=== PATIENT | male | born 1965 | race Caucasian/White ===

== ENCOUNTER 2022-12-10 11:22 | Outpatient (CLI) | payer MEDICAID, SELFPAY | END 2022-12-10 11:23 | disposition home or self-care (01) | PROVIDERS: PCP Family Medicine; Visit Provider Family Medicine | DX: S81.801A Unspecified open wound, right lower leg, initial encounter (principal); W57.XXXA Bitten or stung by nonvenomous insect and other nonvenomous arthropods, initial encounter | CPT/HCPCS: 80053; 85025; 86140; 86617 ==

== ENCOUNTER 2023-11-15 14:00 | Emergency (ER) | payer MEDICAID, SELFPAY ==
[2023-11-15] VITALS (12 sets, daily range): BP systolic 134–155; BP diastolic 93–111; PULSE 94–118; RESP 20; TEMP 37.1; O2SAT 95–99; BMI 24.2
--- NOTE | 2023-11-15 14:53 | CT_ITS ---
Patient: WILLIAM JENKINS Facility:?[facility] Patient ID:?[id number] Site Patient ID:?[id number] Site :?[id number] Study:?CT-ST Neck W/ 74CC [id number]/20/2024 4:07:08 PM Ordering Physician:Loren Valerio Final Report: INDICATION: Smoker, lump in throat, difficulty swallowing, chest/abdominal pain, vomiting TECHNIQUE: CT of the neck with 74 ml Isovue 370 contrast agent. Coronal and sagittal reconstructions are included. COMPARISON: Same day CT chest FINDINGS: The oral cavity, pharyngeal mucosal spaces, and laryngeal structures are unremarkable. The airway is grossly patent. No focal neck mass, abnormal fluid collection, or suspicious cervical lymphadenopathy. There is a left lens implant, with scleral buckle and intra-ocular silicone oil. The right globe and included intracranial structures are unremarkable for technique. The paranasal sinuses and mastoid air cells are clear. The parotid glands, submandibular glands, and thyroid gland have a normal appearance. The major cervical vascular demonstrates expected contrast opacification. No suspicious lytic or blastic osseous lesions identified. Chronic healed fracture deformities of the right posterolateral 4th and 5th ribs. Spinal canal appears grossly patent. No focal mass or consolidation in the included lung apices. IMPRESSION: 1. No focal neck mass, suspicious enhancing lesion, or pathologic cervical lymphadenopathy. 2. Grossly patent visualized airway. 3. Chronic healed right posterior rib fractures. Please note that all CT scans at this facility use dose modulation, iterative reconstruction, and/or weight-based dosing when appropriate to reduce radiation dose to as low as reasonably achievable. Dictated by María Elena Sparrow MD @ 11/15/2023 4:30:12 PM Signed by:?María Elena Sparrow MD @11/15/2023 4:30:12 PM (Electronic Signature)
--- NOTE | 2023-11-15 14:53 | CT_ITS ---
Patient: WILLIAM JENKINS Facility:?[facility] Patient ID:?[id number] Site Patient ID:?[id number]. Site :?[id number] Study:?CT-Chest/Abd/Pelvis W/ 74CC [id number]/20/2024 4:07:35 PM Ordering Physician:Loren Valerio Final Report: Indication: Smoker, lump in throat, difficulty swallowing, chest/abd pain, vomiting Technique: CT of the chest, abdomen, and pelvis was obtained with 74 mL of Isovue 370 intravenous contrast. Please note that all CT scans at this facility use dose modulation, iterative reconstruction, and/or weight-based dosing when appropriate to reduce radiation dose to as low as reasonably achievable. Comparison: None. Findings: CHEST: Medical devices: None. Thyroid: Normal. Lymph nodes: No supraclavicular, axillary, mediastinal, or hilar lymphadenopathy. Vasculature: Aorta and main pulmonary artery diameters are within normal range. Heart: Mild coronary artery calcification. No pericardial effusion. Other mediastinal structures: Mildly thick-walled esophagus. Lung parenchyma and pleura: Mild patchy ground-glass opacity in the left lower lobe (4/64). Airways: No significant abnormality. Chest wall: Moderate chronic appearing right posterior rib deformities. ABDOMEN/PELVIS: Liver and biliary tree: Normal. Gallbladder: Normal. Spleen: Normal. Pancreas: Normal. Adrenal glands: Normal. Kidneys and ureters: Mild left renal cortical scarring. Ill-defined area of hypoenhancement in the inferior left kidney (7/63). No hydronephrosis. No obstructing renal calculi. Gastrointestinal tract: Normal appendix. No evidence of bowel obstruction. Small hiatal hernia. Peritoneal cavity: Normal. Bladder: Mild to moderate wall thickening. Pelvic organs: Mildly enlarged prostate. Vasculature: Mild calcification. Lymph nodes: Normal. Abdominal wall: Normal. Musculoskeletal: Normal. Impression: 1. Mildly thick-walled esophagus may represent esophagitis. Small hiatal hernia. 2. Mild patchy ground-glass opacity in the left lower lobe may represent atypical infection or inflammation. 3. Ill-defined area of hypoenhancement in the inferior left kidney may represent pyelonephritis. Mild to moderate urinary bladder wall thickening. Consider correlation with urinalysis. Outpatient ultrasound may be considered to rule out subtle underlying left renal lesion. Please note that all CT scans at this facility use dose modulation, iterative reconstruction, and/or weight-based dosing when appropriate to reduce radiation dose to as low as reasonably achievable. Dictated by Jonatan Leahy MD @ 11/15/2023 4:34:12 PM Signed by:?Jonatan Leahy MD @11/15/2023 4:34:12 PM (Electronic Signature)
--- NOTE | 2023-11-15 15:10 | ED.GENADULT ---
HPI - General Adult General Date Seen: 11/15/23 Chief complaint: Sore Throat Stated complaint: big lump in throat-weakness, vomiting, blue chest Time Seen by Provider: 11/15/23 14:46 Source: patient and RN notes reviewed Mode of arrival: ambulatory Limitations: no limitations History of Present Illness HPI narrative: Patient is a 58-year-old man with underlying alcohol and substance abuse history who presents noting for the past several days he has had pain in his right nares, sore throat, lump in his throat, multiple episodes of vomiting, abdominal pain. He says it all started when he felt like his nose hairs were growing very long and straight out of his nose, he indicates that he pulled nose hairs out that were many inches in length and now he is concerned that he has a hair ball in the back of his throat. He says he is having difficulty swallowing, he was able to get some soup down yesterday but says he vomited a couple of hours later. He has pain when he swallows. He has not had a fever. He has not had difficulty breathing. He notes epigastric pain associated with vomiting, denies black or bloody stools. Does say that he had some small streaks of blood in his emesis once yesterday. He says he bought a 12 pack of beer few days ago and still has 10 left, notes that he has not been able to drink because of his symptoms. He does smoke cigarettes, did not answer when I asked about other substance use currently. Related Data Previous Rx's Medication Instructions Recorded escitalopram oxalate 10 mg tablet 10 mg PO QDAY #30 tabs 08/06/23 (Lexapro) lisdexamfetamine 60 mg capsule 60 mg PO QDAY #30 caps 09/02/23 lisdexamfetamine 60 mg capsule 60 mg PO QAM #30 caps 09/02/23 (Vyvanse) lisdexamfetamine 60 mg capsule 60 mg PO QAM #30 caps 09/02/23 (Vyvanse) omeprazole 40 mg capsule,delayed 40 mg PO DAILY #30 caps 11/15/23 release sucralfate 100 mg/mL oral 5 ml PO QID PRN #414 mL 11/15/23 suspension (Carafate) Allergies Allergy/AdvReac Type Severity Reaction Status Date / Time No Known Drug Allergies Allergy Verified 11/15/23 14:14 Review of Systems Status of ROS: Reports: 10 or more systems reviewed and unremarkable except as noted in History and below [facility] Medical History ADWOA (generalized anxiety disorder) ?F41.1 - Generalized anxiety disorder (ICD-10) Glaucoma ?H40.9 - Unspecified glaucoma (ICD-10) Bilateral knee pain ?M25.561 - Pain in right knee (ICD-10) ?M25.562 - Pain in left knee (ICD-10) Polysubstance abuse ?F19.10 - Other psychoactive substance abuse, uncomplicated (ICD-10) History of atrial fibrillation (2011) ?Z86.79 - Personal history of other diseases of the circulatory system (ICD-10) Septal infarction ?I21.29 - ST elevation (STEMI) myocardial infarction involving other sites (ICD-10) Alcohol abuse ?F10.10 - Alcohol abuse, uncomplicated (ICD-10) History of rib fracture ?Z87.81 - Personal history of (healed) traumatic fracture (ICD-10) Left corneal scar with opacity ?H17.9 - Unspecified corneal scar and opacity (ICD-10) ADHD (attention deficit hyperactivity disorder), combined type ?F90.2 - Attention-deficit hyperactivity disorder, combined type (ICD-10) Surgical History Dermal nevus of eyebrow (08/17/14) ?D23.39 - Other benign neoplasm of skin of other parts of face (ICD-10) History of reduction of nasal fracture (1995) ?Z98.890 - Other specified postprocedural states (ICD-10) ?Z87.81 - Personal history of (healed) traumatic fracture (ICD-10) History of open reduction and internal fixation (ORIF) procedure (1985) ?Z98.890 - Other specified postprocedural states (ICD-10) Ganglion cyst of finger of right hand (05/2006) ?M67.441 - Ganglion, right hand (ICD-10) History of tonsillectomy and adenoidectomy ?Z90.89 - Acquired absence of other organs (ICD-10) History of bilateral inguinal hernia repair (10/2006) ?Z98.890 - Other specified postprocedural states (ICD-10) ?Z87.19 - Personal history of other diseases of the digestive system (ICD-10) History of eye surgery (2011) ?Z98.890 - Other specified postprocedural states (ICD-10) Family History Brother Myotonia congenita, dominant form (Latonia's disease) Social History Narrative: Single, 2 kids, smoker, THC use, EtOH to excess, unemployed, 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, lives with mom at times otherwise homeless What is your current living situation?: I have a place to live at present, but am concerned about future Problems where you live: no known problems In the past 12 months, utilities in danger of being shut off: no In past 12 months, lack of transportation kept you from medical appts, meetings, work, or getting things needed for daily living: yes In the past 12 mos, have been you worried that your food would run out before you had money to buy more?: never true In the past 12 mos, the food you bought just didn't last and you didn't have money to buy more?: never true Smoking Status: Current some day smoker What tobacco products do you use: cigarettes How often do you have a drink containing alcohol: 2-3 times a week How many standard drinks containing alcohol do you have on a typical day: 1 or 2 AUDIT-C Alcohol total score: 3 Non-prescribed substance use: marijuana (any form) and amphetamines/methamphetamines How often does anyone, including family, friends and others, physically hurt you: never How often does anyone, including family, friends and others, insult or talk down to you: fairly often How often does anyone, including family, friends and others, threaten you with harm: never How often does anyone, including family, friends and others, scream or curse at you: sometimes Little interest or pleasure in doing things: not at all Feeling down, depressed, or hopeless: not at all Exam Narrative: Exam Narrative: Vital signs as noted above. In general, an alert, well-appearing patient. Head: Normocephalic, atraumatic. Eyes: Pupils are equal reactive. Extraocular movements are full. Conjunctivae are normal. ENT: Mucous membranes are moist. Nares clear. Throat is normal, no masses, exudate, airway patent. Neck: Supple without lymphadenopathy. No masses, no stridor. Heart: Regular rate and rhythm. No murmur or rub. Lungs: Clear bilaterally. No increased work of breathing, crackles or wheezes. Abdomen: Soft and nontender. No organomegaly. Extremities: Well perfused. No edema. No calf tenderness. Pulses intact. Neurologic: Patient is alert and oriented to person and place. Speech is fluent. Face is symmetric. Moves all extremities equally. Affect: Normal. Skin: Warm and dry. Well perfused. Const: Vital Signs, click to edit/add: Vital Signs - 24 hr 11/15/23 14:07 11/15/23 15:16 11/15/23 15:30 Temperature 98.7 F Pulse Rate 104 H 102 H Pulse Rate [Pulse Oximeter] 114 H Respiratory Rate 20 Blood Pressure Blood Pressure [Ri ght Upper Arm] 134/93 H Pulse Oximetry 98 95 99 Oxygen Delivery Me thod Room Air 11/15/23 15:31 11/15/23 15:45 11/15/23 16:16 Temperature Pulse Rate 108 H 99 104 H Pulse Rate [Pulse Oximeter] Respiratory Rate Blood Pressure 135/110 H Blood Pressure [Ri ght Upper Arm] Pulse Oximetry 99 96 95 Oxygen Delivery Me thod 11/15/23 16:17 11/15/23 16:30 11/15/23 16:31 Temperature Pulse Rate 108 H 97 94 Pulse Rate [Pulse Oximeter] Respiratory Rate Blood Pressure 145/111 H 155/107 H Blood Pressure [Ri ght Upper Arm] Pulse Oximetry 99 97 98 Oxygen Delivery Me thod 11/15/23 16:32 11/15/23 16:45 11/15/23 17:01 Temperature Pulse Rate 97 118 H Pulse Rate [Pulse Oximeter] Respiratory Rate Blood Pressure 148/98 H Blood Pressure [Ri ght Upper Arm] Pulse Oximetry 98 99 Oxygen Delivery Me thod Documenting provider has reviewed patient's vital signs: yes Course Course ED Course: An IV was placed here, he was given a L normal saline as well as Zofran. His labs are notable for a white count of 17.7, hemoglobin of 15.4, neutrophil percentage of 80%. Unclear whether there is a component of de margination here. He remained afebrile. Sodium was 134, potassium 3.3, chloride 95. CO2 was 25, BUN 26 creatinine 1.1. LFTs notable for an AST of 38, bilirubin normal. Lipase was normal at 56. CRP minimally elevated at 1.3. UA showed 2-5 red cells and 5-10 white blood cells. I did CT scans of the soft tissues of the neck as well as the chest abdomen and pelvis. These are read as following by Radiology:FINDINGS: The oral cavity, pharyngeal mucosal spaces, and laryngeal structures are unremarkable. The airway is grossly patent. No focal neck mass, abnormal fluid collection, or suspicious cervical lymphadenopathy. There is a left lens implant, with scleral buckle and intra-ocular silicone oil. The right globe and included intracranial structures are unremarkable for technique. The paranasal sinuses and mastoid air cells are clear. The parotid glands, submandibular glands, and thyroid gland have a normal appearance. The major cervical vascular demonstrates expected contrast opacification. No suspicious lytic or blastic osseous lesions identified. Chronic healed fracture deformities of the right posterolateral 4th and 5th ribs. Spinal canal appears grossly patent. No focal mass or consolidation in the included lung apices. IMPRESSION: 1. No focal neck mass, suspicious enhancing lesion, or pathologic cervical lymphadenopathy. 2. Grossly patent visualized airway. 3. Chronic healed right posterior rib fractures. Findings: CHEST: Medical devices: None. Thyroid: Normal. Lymph nodes: No supraclavicular, axillary, mediastinal, or hilar lymphadenopathy. Vasculature: Aorta and main pulmonary artery diameters are within normal range. Heart: Mild coronary artery calcification. No pericardial effusion. Other mediastinal structures: Mildly thick-walled esophagus. Lung parenchyma and pleura: Mild patchy ground-glass opacity in the left lower lobe (4/64). Airways: No significant abnormality. Chest wall: Moderate chronic appearing right posterior rib deformities. ABDOMEN/PELVIS: Liver and biliary tree: Normal. Gallbladder: Normal. Spleen: Normal. Pancreas: Normal. Adrenal glands: Normal. Kidneys and ureters: Mild left renal cortical scarring. Ill-defined area of hypoenhancement in the inferior left kidney (7/63). No hydronephrosis. No obstructing renal calculi. Gastrointestinal tract: Normal appendix. No evidence of bowel obstruction. Small hiatal hernia. Peritoneal cavity: Normal. Bladder: Mild to moderate wall thickening. Pelvic organs: Mildly enlarged prostate. Vasculature: Mild calcification. Lymph nodes: Normal. Abdominal wall: Normal. Musculoskeletal: Normal. Impression: 1. Mildly thick-walled esophagus may represent esophagitis. Small hiatal hernia. 2. Mild patchy ground-glass opacity in the left lower lobe may represent atypical infection or inflammation. 3. Ill-defined area of hypoenhancement in the inferior left kidney may represent pyelonephritis. Mild to moderate urinary bladder wall thickening. Consider correlation with urinalysis. Outpatient ultrasound may be considered to rule out subtle underlying left renal lesion. I reviewed this with him. Reviewed that there is no evidence of an apparent mass, malignancy, stricture, or other abnormality of the throat. He does have evidence of esophagitis, which I suspect is significantly contributing to his symptoms. I gave him Protonix here, and will start him on omeprazole and Carafate at home. Discussed that he needs to abstain from alcohol which he says he will have no trouble doing since he is going to go to treatment. I asked him when he plans to go to treatment he said really any time he feels ready. He does not plan to go to inpatient treatment however, he says he has done that 6 times and they can teach him anything new. We discussed his urine drug screen which is positive for meth. He says he hangs out with people who do meth and maybe they were putting it in his drinks. He denies specifically using methamphetamine. Given that there was a question of pyelonephritis on CT knee does have some white cells in his urine I am going to cover him with an antibiotic, but in the absence of significant flank pain, fever, I am not certain of this diagnosis. He did remain tachycardic, but he was pretty agitated at the time of his most recent vital signs. He settled down during conversation with me. He seems to feel somewhat better knowing that there is not a mass in his throat. For now, I think it is reasonable to let him go home, I have prescribed Zofran, Carafate, omeprazole, and Macrobid. He should follow-up with Dr. Armstrong in the next week for recheck. Return to the ER at any time for fevers, chills, persistent vomiting, significant flank pain or other worsening. Vital Signs Vital signs: Initial Vital Signs Temperature 98.7 F 11/15/23 14:07 Temperature Source Temporal Artery Scan 11/15/23 14:07 Pulse Rate 114 H 11/15/23 14:07 Respiratory Rate 20 11/15/23 14:07 Blood Pressure 134/93 H 11/15/23 14:07 Blood Pressure Mean 106 H 11/15/23 14:07 Blood Pressure Position Sitting 11/15/23 14:07 Pulse Oximetry 98 11/15/23 14:07 Oxygen Delivery Method Room Air 11/15/23 14:07 Vital Signs Temperature 98.7 F 11/15/23 14:07 Pulse Rate 114 H 11/15/23 14:07 Respiratory Rate 20 11/15/23 14:07 Blood Pressure 134/93 H 11/15/23 14:07 Pulse Oximetry 98 11/15/23 14:07 Oxygen Delivery Method Room Air 11/15/23 14:07 Temperature 98.7 F 11/15/23 14:07 Pulse Rate 118 H 11/15/23 16:45 Respiratory Rate 11/15/23 14:07 Blood Pressure 148/98 H 11/15/23 17:01 Pulse Oximetry 99 11/15/23 16:45 Oxygen Delivery Method Room Air 11/15/23 14:07 Medications Administered Medications: Discontinued Medications Generic Name Dose Route Start Last Admin Trade Name Freq PRN Reason Stop Dose Admin Sodium Chloride 1,000 mls @ 1,000 mls/hr 11/15/23 15:00 11/15/23 16:40 0.9 % Sodium Chloride 1000 Ml IV 11/15/23 15:59 Infused .Q1H TORSTEN Infusion Lidocaine/Aluminum/Magnesium/Simeth 30 ml 11/15/23 17:05 11/15/23 17:09 Gi Cocktail (Visc Lido/Antacid) 30 Ml PO 11/15/23 17:06 30 ml ONCE ONE Administration Ondansetron HCl 4 mg 11/15/23 14:53 11/15/23 15:15 Ondansetron 2 Mg/Ml Inj IVP 11/15/23 14:54 4 mg ONCE ONE Administration Pantoprazole Sodium 40 mg 11/15/23 16:58 11/15/23 17:11 Pantoprazole Sodium 40 Mg Inj IVP 11/15/23 16:59 40 mg ONCE ONE Administration Medical Decision Making Lab Data Labs: Lab Results 11/15/23 11/15/23 Range/Units 15:15 15:23 WBC 17.70 H (4.50-11.00) K/uL RBC 5.16 (4.30-5.90) m/uL Hgb 15.4 (13.5-17.5) gm/dL Hct 44.4 (37.0-53.0) % MCV 86 (80-100) fL MCH 30 (26-34) pg MCHC 35 (32-36) gm/dL RDW Coeff of Tee 13.2 (11.5-15.5) % Plt Count 382 (140-440) K/uL Neut % (Auto) 79.7 H (42.0-72.0) % Lymph % (Auto) 10.0 L (20-44) % [place] % (Auto) 9.8 (0.0-11.0) % Eos % (Auto) 0.1 (0.0-7.0) % Baso % (Auto) 0.1 (0.0-3.0) % Neut # (Auto) 14.10 H (1.7-7.0) K/uL Lymph # (Auto) 1.80 (0.90-2.90) K/uL [place] # (Auto) 1.70 H (0.00-0.90) K/UL Eos # (Auto) 0.00 (0.00-0.50) K/uL Baso # (Auto) 0.00 (0.00-0.30) K/uL Abs Immat Gran (auto) 0.10 (0.00-0.30) K/uL Imm/Tot Granulo (auto) 0.3 % Sodium 134 L (135-149) mmol/L Potassium 3.3 L (3.6-5.1) mmol/L Chloride 95 L (96-114) mmol/L Carbon Dioxide 25 (20-32) mmol/L Anion Gap 14 (7-15) mEq/L BUN 26 (7-30) mg/dL Creatinine 1.1 (0.5-1.5) mg/dL Estimated Creat Clear 67.67 Estimated GFR 79 ml/min Glucose 111 (60-115) mg/dL Calcium 10.9 H (8.4-10.6) mg/dL Total Bilirubin 1.1 (0.1-1.5) mg/dL Direct Bilirubin 0.3 (0.0-0.5) mg/dL AST 38 H (12-35) U/L ALT 34 (4-50) U/L Alkaline Phosphatase 107 (40-150) U/L C-Reactive Protein 1.3 H (0.5-1.0) mg/dL Total Protein 9.3 H (6.0-8.3) g/dL Albumin 5.7 H (3.3-5.0) g/dL Lipase 56 (23-300) U/L Urine Color Yellow (Yellow) Urine Appearance Cloudy A (Clear) Urine pH 6.0 (5.0-8.5) Ur Specific [place] 1.025 (1.000-1.030) Urine Protein 2+ A (Negative) Urine Glucose (UA) Negative (Negative) Urine Ketones 3+ A (Negative) Urine Blood Trace-intact A (Negative) Urine Nitrite Negative (Negative) Urine Bilirubin Negative (Negative) Urine Urobilinogen 0.2 (0.2-1.0) Ur Leukocyte Esterase Negative (Negative) Urine RBC 2-5 A (0-2) Urine WBC 5-10 A (0-5) Ur Squamous Epith Cells None (None-Few) Amorphous Sediment Few A (None) Other Sediment Moderate A (None) Urine Bacteria Few A (None) Hyaline Casts Moderate A (None-Few) Fine Granular Casts Moderate A (None) Urine Mucus Many A (None) Urine Opiates Screen Negative (Negative) Ur Oxycodone Screen Negative (Negative) Urine Methadone Screen Negative (Negative) Ur Barbiturates Screen Negative (Negative) U Tricyclic Antidepress Negative (Negative) Ur Phencyclidine Scrn Negative (Negative) Ur Amphetamines Screen POSITIVE A (Negative) U Methamphetamines Scrn POSITIVE A (Negative) U Benzodiazepines Scrn Negative (Negative) Urine Cocaine Screen Negative (Negative) U Marijuana (THC) Screen POSITIVE A (Negative) Ur Drug Screen Comment See Note Ethyl Alcohol < 0.01 L (0.01-0.03) % Discharge Plan Discharge Clinical Impression: Polysubstance abuse, Esophagitis Patient Disposition: Home, Self-Care Condition: Improved Instructions: Esophagitis (ED) Additional Instructions: Your CT scans do not show any evidence of mass or blockage in your throat. You may have a little bit of a urinary tract infection, and it looks like you have esophagitis, inflammation of the esophagus. I would recommend abstinence from alcohol as this will tend to make this worse. I have prescribed a medication to help treat the inflammation that is presently there. I have also prescribed an antibiotic in case of urinary tract infection. I have also prescribe Zofran which you can use for nausea or vomiting. Please follow-up with primary care for recheck in the next week. Return to the ER at any time if you develop new symptoms such as fever, chills, flank pain, persistent vomiting or other worsening. Prescriptions: New sucralfate [Carafate] 100 mg/mL suspension 5 ml PO QID PRNQty: 414 2RF Rx Instructions: swish in mouth and swallow; use after food/drink omeprazole 40 mg capsule,delayed release(DR/EC) 40 mg PO DAILY Qty: 30 2RF No Action escitalopram oxalate [Lexapro] 10 mg tablet 10 mg PO QDAY Qty: 30 1RF Rx Instructions: 1/2 QD x 6 days then 1 QD lisdexamfetamine [Vyvanse] 60 mg capsule 60 mg PO QAM Qty: 30 0RF lisdexamfetamine 60 mg capsule 60 mg PO QDAY Qty: 30 0RF lisdexamfetamine [Vyvanse] 60 mg capsule 60 mg PO QAM Qty: 30 0RF Follow Up/Referrals: Fernando Armstrong MD [Primary Care Provider] - Stand Alone Forms: [facility] Info Instructions
[2023-11-15] MEDS: ONDANSETRON 2 MG/ML inj 4 MG IVP (15:15)
[2023-11-15 15:25] LABS: Basophils Percent Auto 0.1 % (0.0-3.0); Eosinophils Percent Auto 0.1 % (0.0-7.0); Hematocrit 44.4 % (37.0-53.0); Hemoglobin* 15.4 gm/dL (13.5-17.5); Immature Granulocytes Pct Auto 0.3 %; Mean Corpuscular HGB Conc 35 gm/dL (32-36); Mean Corpuscular Hemoglobin 30 pg (26-34); Mean Corpuscular Volume 86 fL (80-100); Monocytes Percent Auto 9.8 % (0.0-11.0); Neutrophils Percent Auto 79.7 % (42.0-72.0); Platelet Count* 382 K/uL (140-440); RDW Coefficient of Variation % 13.2 % (11.5-15.5); Red Blood Count 5.16 m/uL (4.30-5.90)
[2023-11-15] MEDS: 0.9 % SODIUM CHLORIDE 1000 ml 1,000 ML IV (15:25)
[2023-11-15 15:30] LABS: Appearance Urine Cloudy (Clear); Bilirubin Urine Negative (Negative); Blood Urine Trace-intact (Negative); Color Urine Yellow (Yellow); Glucose Urine Negative (Negative); Ketones Urine 3+ (Negative); Leukocyte Esterase Urine Negative (Negative); Nitrite Urine Negative (Negative); Protein Urine 2+ (Negative); Specific Gravity Urine 1.025 (1.000-1.030); Urobilinogen Urine 0.2 (0.2-1.0)
[2023-11-15 15:31] LABS: Slide Review Reflex No
[2023-11-15 15:36] LABS: Albumin* 5.7 g/dL (3.3-5.0)
[2023-11-15 15:37] LABS: Chloride* 95 mmol/L (96-114); Potassium* 3.3 mmol/L (3.6-5.1); Sodium* 134 mmol/L (135-149)
[2023-11-15 15:39] LABS: Alanine Aminotransferase* 34 U/L (4-50); Alkaline Phosphatase* 107 U/L (40-150); Aspartate Amino Transferase* 38 U/L (12-35); Bilirubin Direct* 0.3 mg/dL (0.0-0.5); Bilirubin Total* 1.1 mg/dL (0.1-1.5); Total Protein* 9.3 g/dL (6.0-8.3)
[2023-11-15 15:40] LABS: Creatinine* 1.1 mg/dL (0.5-1.5); Est. Creatinine Clearance* 67.67; Estimated Glomerular Filt Rate 79 ml/min; Lipase* 56 U/L (23-300)
[2023-11-15 15:41] LABS: Amphetamine Screen Urine POSITIVE (Negative); Barbiturate Screen Urine Negative (Negative); Benzodiazepines Screen Urine Negative (Negative); Cannabinoid Screen Urine POSITIVE (Negative); Cocaine Screen Urine Negative (Negative); Methadone Screen Urine Negative (Negative); Methamphetamines Screen Urine POSITIVE (Negative); Opiate Screen Urine Negative (Negative); Oxycodone Screen Urine Negative (Negative); Phencyclidine Screen Urine Negative (Negative); Tricyclic Antidepressant Urine Negative (Negative)
[2023-11-15 15:41] LABS: Anion Gap 14 mEq/L (7-15); Blood Urea Nitrogen* 26 mg/dL (7-30); Calcium* 10.9 mg/dL (8.4-10.6); Carbon Dioxide* 25 mmol/L (20-32); Ethanol* < 0.01 % (0.01-0.03); Glucose* 111 mg/dL (60-115)
[2023-11-15 15:43] LABS: Amorphous Sediment Urine Few; Bacteria Urine Few; Mucus Urine Many; Other Sediment Urine Moderate
[2023-11-15 15:44] LABS: C Reactive Protein* 1.3 mg/dL (0.5-1.0)
[2023-11-15 15:44] LABS: Fine Granular Casts Urine Moderate; Hyaline Casts Urine Moderate (None-Few)
--- NOTE | 2023-11-15 16:44 | ED.NURSE ---
Pt vomited 75ml of emesis
[2023-11-15] MEDS: GI COCKTAIL (VISC LIDO/ANTACID) 30 ML PO (17:09)
[2023-11-15] MEDS: PANTOPRAZOLE SODIUM 40 MG INJ IVP (17:11)
== END 2023-11-15 17:25 | disposition home or self-care (01) ==
PROVIDERS: Emergency Provider Emergency Medicine; PCP Family Medicine
DX: K20.90 Esophagitis, unspecified without bleeding (principal); F19.10 Other psychoactive substance abuse, uncomplicated
CPT/HCPCS: 36415; 70491; 71260; 74177; 80048; 80076; 80306; 81001; 82077; 83690; 85025; 86140; 87086; 96374; 96375; 99284; A9270; C9113; J2405; J7030; Q9967

== ENCOUNTER 2024-09-14 10:03 | Outpatient (CLI) | payer MEDICAID, SELFPAY ==
[2024-09-14 15:20] LABS: Chlamydia DNA Amplified* NOT DETECTED (No Detected); GC DNA Amplified* NOT DETECTED (No Detected)
== END 2024-09-14 10:04 | disposition home or self-care (01) ==
PROVIDERS: PCP Family Medicine; Visit Provider Family Medicine
DX: F19.10 Other psychoactive substance abuse, uncomplicated (principal); Z11.3 Encounter for screening for infections with a predominantly sexual mode of transmission; Z12.5 Encounter for screening for malignant neoplasm of prostate; Z13.6 Encounter for screening for cardiovascular disorders
CPT/HCPCS: 80048; 80061; 80076; 86592; 86703; 87491; 87591; G0103

== ENCOUNTER 2024-09-28 12:28 | Outpatient (CLI) | payer MEDICAID, SELFPAY ==
--- NOTE | 2024-09-28 13:44 | P.ANES_ITS ---
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
--- NOTE | 2024-09-28 13:44 | W.ANESCHARGE ---
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
== END 2024-09-28 12:29 | disposition home or self-care (01) ==
LOC: OP CLINIC 12:29
PROVIDERS: PCP Family Medicine; Visit Provider Internal Medicine
DX: Z12.11 Encounter for screening for malignant neoplasm of colon (principal); D12.5 Benign neoplasm of sigmoid colon; K64.8 Other hemorrhoids
CPT/HCPCS: 00811; 45380; 88305; J2704

== ENCOUNTER 2024-10-26 16:02 | Outpatient (CLI) | payer MEDICAID, SELFPAY | END 2024-10-26 16:03 | disposition home or self-care (01) | LOC: FBOREF 16:03 | PROVIDERS: PCP Family Medicine; Visit Provider Family Medicine | DX: Z77.011 Contact with and (suspected) exposure to lead (principal) | CPT/HCPCS: 83655 ==